=== PATIENT | male | born 1975 | race Caucasian/White ===

== ENCOUNTER 2017-08-16 19:07 | Emergency (ER) | payer OTHER ==
[~2017-08-16] VITALS: Ht 190.5 cm; Wt 142.3 kg
[~2017-08-16 19:07] MED LIST: CLONAZEPAM1 MG PO; FLEXERIL10 MG PO; LISINOPRIL10 MG PO; MOTRIN800 MG PO; OSTEO BI-FLEX1 EAC1 PO; SERTRALINE HCL25 MG PO; ULTRAM50 MG PO
[2017-08-16 22:29] LABS: HEMATOCRIT 42.7 % (38.0-50.0); HEMOGLOBIN 14.8 G/DL (12.5-16.6); MCH 31.2 PG (29.0-34.0); MCHC 34.7 G/DL (30.0-36.0); MCV 89.9 FL (86-99); RBC DIS.WIDTH-CV 13.2 % (11.8-14.6); RBC DIS.WIDTH-SD 43.7 % (39-53); RED BLOOD COUNT 4.75 M/uL (4.00-5.50); WHITE BLOOD COUNT 10.8 K/uL (4.1-10.2)
[2017-08-16 22:46] LABS: ALBUMIN 4.4 g/dL (3.2-4.8); CHLORIDE 102 mEq/L (99-109); POTASSIUM 4.4 mEq/L (3.7-5.4); SODIUM 136 mEq/L (136-147)
[2017-08-16 22:48] LABS: GLUCOSE 85 mg/dL (70-99)
[2017-08-16 22:49] LABS: TOTAL PROTEIN 7.4 g/dL (6.4-8.3)
[2017-08-16 22:52] LABS: ALKALINE PHOSPHATASE 80 IU/L (3-129); CREATININE 0.9 mg/dL (0.6-1.3); GFR ESTIMATE (CALCULATED) > 59 mL/min/ (58.99-99999)
[2017-08-16 22:53] LABS: UREA NITROGEN (BUN) 20 mg/dL (9-23)
[2017-08-16 22:54] LABS: AST (GOT) 24 IU/L (2-34)
[2017-08-16 22:55] LABS: ALT (GPT) 33 IU/L (3-49)
[2017-08-16 23:33] LABS: PLATELET COUNT 165 K/uL (156-360)
[2017-08-17] MEDS ORDERED: CLEOCIN300 MG PO (01:11)
[2017-08-17 01:57] VITALS: BP 143/86
== END 2017-08-17 01:58 | disposition home or self-care (01) ==
LOC: EME 19:07
PROVIDERS: Physician Assistant
PROC: 0H95XZZ Drainage of Chest Skin, External Approach (ICD-10-PCS; principal; 2017-08-16)
DX: L02.213 Cutaneous abscess of chest wall (principal); Z87.891 Personal history of nicotine dependence; Z87.39 Personal history of other diseases of the musculoskeletal system and connective tissue; Z88.2 Allergy status to sulfonamides
CPT/HCPCS: 80053; 83605; 85027; 99281; 99284